=== PATIENT | female | born 1945 | race Hispanic/Latino ===

== ENCOUNTER 2021-06-16 08:00 | Observation (INO) | payer MEDICARE ==
[~2021-06-16] VITALS: Ht 160 cm; Wt 76.3 kg
[2021-06-16 07:23] VITALS: BP 154/70
[2021-06-16 11:50] LABS: BASOPHILS % (AUTO) 0.6 % (0.0-5.0); EOSINOPHILS % (AUTO) 2.7 % (0.0-8.0); HEMATOCRIT 46.2 % (36-48); LYMPHOCYTES % (AUTO) 22.1 % (21.0-51.0); MEAN CORPUSCULAR HEMOGLOBIN 31.9 pg (27.0-33.0); MEAN CORPUSCULAR HGB CONC 32.9 g/dL (32.0-36.0); MEAN CORPUSCULAR VOLUME 97.1 fL (79-99); MONOCYTES % (AUTO) 8.4 % (3.0-13.0); NEUTROPHILS % (AUTO) 65.8 % (40.0-77.0); PLATELET COUNT (AUTO) 260 K/uL (130-400); RED BLOOD CELL COUNT(AUTO) 4.76 MIL/uL (4.00-5.50); RED CELL DISTRIBUTION WIDTH 13.7 % (11.0-15.5); WHITE BLOOD COUNT (AUTO) 8.9 K/uL (4.8-10.8)
[2021-06-16 11:59] LABS: CREATININE 1.1 mg/dL (0.5-1.5); POTASSIUM 4.4 mmol/L (3.5-5.1)
[2021-06-18] MEDS ORDERED: DICL35CA3 PO (10:06)
[2021-06-18] MEDS ORDERED: METOPROLOL SUCC PO (10:06)
[2021-06-18] MEDS ORDERED: ATOR10 PO (10:06)
[2021-06-18] MEDS ORDERED: DULOXETINE HCL PO (10:06)
[2021-06-19] MEDS ORDERED: CEFAZOLIN SODIUM 1 GM VIAL IVP SCH (06:00)
[2021-06-20] VITALS (25 sets, daily range): BP systolic 109–161; BP diastolic 46–87
[2021-06-20] MEDS ORDERED: LACTATED RINGERS 1000ML 1,000 ML IV ONE (06:10)
[2021-06-20] MEDS ORDERED: CEFAZOLIN SODIUM 1 GM VIAL ONE ×3 (06:10→12:19)
[2021-06-20] MEDS ORDERED: METO-408 PO (07:32)
[2021-06-20] MEDS ORDERED: DULO30CA52 PO (07:32)
[2021-06-20] MEDS ORDERED: LIDOCAINE PF 100MG/5ML (2%) SYRINGE 5ML ONE (07:32)
[2021-06-20] MEDS ORDERED: MIDAZOLAM HCL 1 MG/ML 2ML VIAL ONE (07:33)
[2021-06-20] MEDS ORDERED: FENTANYL CITRATE PF 50 MCG/1 ML 2ML VIAL ONE ×2 (07:34→13:10)
[2021-06-20] MEDS ORDERED: ROCURONIUM 10MG/1ML SYR 10 MG/ML ML ONE (07:34)
[2021-06-20] MEDS ORDERED: PROPOFOL 10 MG/ML 20ML VIAL IV ONE (07:34)
[2021-06-20] MEDS ORDERED: ONDANSETRON 4MG INJ ONE (07:34)
[2021-06-20] MEDS ORDERED: PROPOFOL 1000 MG/100 ML 100 ML IV ONE (07:37)
[2021-06-20] MEDS ORDERED: KETAMINE 50MG/ML SYRINGE 50 MG/ML DISP.SYRIN IV ONE (07:37)
[2021-06-20] MEDS ORDERED: THROMBIN-JMI 5000 UNIT/VIAL TP ONE (09:21)
[2021-06-20] MEDS ORDERED: BUPIVACAINE/EPI/PF 0.25% 30ML VIAL IJ ONE (09:21)
[2021-06-20] MEDS ORDERED: MORPHINE PF 100MG/10ML AMP IV ONE (09:21)
[2021-06-20] MEDS ORDERED: FENTANYL CITRATE PF 50 MCG/1 ML 5ML AMP IV ONE (09:44)
[2021-06-20] MEDS ORDERED: DEXAMETHASONE SOD PHOSPHATE 10MG/ML 1ML VIAL ONE (10:17)
[2021-06-20] MEDS ORDERED: ESMOLOL HCL 10 MG/ML 10 ML VIAL ONE (10:18)
[2021-06-20] MEDS ORDERED: MAGNESIUM SULFATE 1 GM/2 ML VIAL ONE (10:18)
[2021-06-20] MEDS ORDERED: EPINEPHRINE PF 1MG AMP ONE (10:35)
[2021-06-20] MEDS ORDERED: GLYCOPYRROLATE 1 MG/5 ML SYRINGE ONE (10:36)
[2021-06-20] MEDS ORDERED: PHENYLEPHRINE HCL 10 MG/ML 1ML VIAL IV ONE (10:37)
[2021-06-20] MEDS ORDERED: KETOROLAC 30MG VIAL (30MG/ML) ONE (12:24)
[2021-06-20] MEDS ORDERED: NEOSTIGMINE 5MG/5ML SYR IV ONE (12:49)
[2021-06-20] MEDS ORDERED: DEXAMETHASONE SOD PHOSPHATE 4 MG/ML 1ML VIAL IVP SCH (13:30)
[2021-06-20] MEDS ORDERED: 0.9%NACL 10ML VIAL IVP PRN (13:30)
[2021-06-20] MEDS ORDERED: LACTATED RINGERS 1000ML 1,000 ML IV SCH (13:30)
[2021-06-20] MEDS ORDERED: DULOXETINE HCL 30 MG CAP PO PRN (13:30)
[2021-06-20] MEDS ORDERED: MORPHINE 2 MG SYG IVP PRN (13:30)
[2021-06-20] MEDS ORDERED: PROMETHAZINE HCL 25 MG/ML 1ML AMPULE IM PRN (13:30)
[2021-06-20] MEDS ORDERED: HYDROCODONE/ACETAMINOPHEN 5/325 MG TAB PO PRN (13:30)
[2021-06-20] MEDS ORDERED: CEFAZOLIN SODIUM 1 GM VIAL IVP SCH (18:00)
[2021-06-20] MEDS: DEXAMETHASONE SOD PHOSPHATE 4 MG/ML 1ML VIAL IVP SCH (18:38)
[2021-06-20] MEDS ORDERED: ATORVASTATIN 10 MG TABLET PO SCH (21:00)
[2021-06-21] VITALS: BP 118/56
[2021-06-21] MEDS: DEXAMETHASONE SOD PHOSPHATE 4 MG/ML 1ML VIAL IVP SCH ×3 (00:52→12:00)
[2021-06-21 08:00] VITALS: BP 121/80
[2021-06-21] MEDS ORDERED: METOPROLOL SUCCINATE 50 MG TAB.SR.24H PO SCH (09:00)
[2021-06-21 12:00] VITALS: BP 126/66
== END 2021-06-21 13:30 | disposition home or self-care (01) ==
LOC: DAHIP 06-19 05:51 → UNDOADMOB 06-19 05:51 → DAHIP 06-20 06:57 → 4AH 06-20 14:45
PROVIDERS: ADMIT Neurological Surgery; ATTEND Neurological Surgery
DX: M48.062 Spinal stenosis, lumbar region with neurogenic claudication (principal); Z20.822 Contact with and (suspected) exposure to COVID-19; M43.10 Spondylolisthesis, site unspecified; Z90.710 Acquired absence of both cervix and uterus
CPT/HCPCS: 36415; 63047; 63048 ×2; 72100; 80048; 85025; 87635; 96374; 96375; 96376; A4215; A4221; A4222; A4223; A4344; A4510; A4600; A4649 ×3; A4663; G0378 ×23; J0171; J0690 ×4; J1100 ×5; J1885; J2001; J2250; J2274; J2370; J2405; J2704 ×2; J2710; J3010 ×3; J3475; J3490 ×5; J7120 ×3

== ENCOUNTER → 2022-03-26 | Outpatient (CLI) | payer MEDICARE ==
[~2022-03-26] MED LIST: ATOR10 PO; DICL35CA3 PO; DULO30CA52 PO; GADOTERATE MEGLUMINE 5 MMOL/10 ML VIAL IV ONE; METO-408 PO
== END | disposition home or self-care (01) ==
LOC: RAH 08:40
PROVIDERS: ATTEND Neurological Surgery
DX: M43.16 Spondylolisthesis, lumbar region (principal); M47.26 Other spondylosis with radiculopathy, lumbar region; M48.061 Spinal stenosis, lumbar region without neurogenic claudication
CPT/HCPCS: 72158; A9575

== ENCOUNTER → 2022-04-03 | Outpatient (CLI) | payer MEDICARE ==
[~2022-04-03] MED LIST changes: -GADOTERATE MEGLUMINE 5 MMOL/10 ML VIAL IV ONE
== END | disposition home or self-care (01) ==
LOC: RAH 08:07
PROVIDERS: ATTEND Neurological Surgery
DX: S33.140A Subluxation of L4/L5 lumbar vertebra, initial encounter (principal); M54.50 Low back pain, unspecified; X58.XXXA Exposure to other specified factors, initial encounter; Y93.89 Activity, other specified; Y92.89 Other specified places as the place of occurrence of the external cause; Y99.8 Other external cause status
CPT/HCPCS: 72114

== ENCOUNTER 2022-06-01 09:30 | Observation (INO) | payer MEDICARE ==
[~2022-06-01] VITALS: Ht 162.6 cm; Wt 79.6 kg
[~2022-06-01 09:30] MED LIST changes: -DICL35CA3 PO
[2022-06-01 09:49] LABS: BASOPHILS % (AUTO) 0.5 % (0.0-5.0); EOSINOPHILS % (AUTO) 2.2 % (0.0-8.0); HEMATOCRIT 40.7 % (36-48); LYMPHOCYTES % (AUTO) 22.9 % (21.0-51.0); MEAN CORPUSCULAR HEMOGLOBIN 31.4 pg (27.0-33.0); MEAN CORPUSCULAR HGB CONC 32.4 g/dL (32.0-36.0); MEAN CORPUSCULAR VOLUME 96.7 fL (79-99); MONOCYTES % (AUTO) 10.3 % (3.0-13.0); NEUTROPHILS % (AUTO) 63.7 % (40.0-77.0); PLATELET COUNT (AUTO) 276 K/uL (130-400); RED BLOOD CELL COUNT(AUTO) 4.21 MIL/uL (4.00-5.50); RED CELL DISTRIBUTION WIDTH 12.7 % (11.0-15.5); WHITE BLOOD COUNT (AUTO) 7.3 K/uL (4.8-10.8)
[2022-06-01 10:01] LABS: POTASSIUM 4.6 mmol/L (3.5-5.1)
[2022-06-01 10:21] VITALS: BP 138/70
[2022-06-03] VITALS (26 sets, daily range): BP systolic 107–154; BP diastolic 42–91
[2022-06-03] MEDS: CEFAZOLIN SODIUM 2 GM VIAL IVPB SCH ×2 (05:00→08:00)
[2022-06-03] MEDS ORDERED: LACTATED RINGERS 1000ML 1,000 ML IV ONE (06:09)
[2022-06-03] MEDS ORDERED: PROPOFOL 1000 MG/100 ML 200 ML IV ONE (06:39)
[2022-06-03] MEDS ORDERED: DEXAMETHASONE SOD PHOSPHATE 4 MG/ML 1ML VIAL ONE (06:39)
[2022-06-03] MEDS ORDERED: LIDOCAINE PF 100MG/5ML (2%) SYRINGE 5ML ONE (06:52)
[2022-06-03] MEDS ORDERED: FENTANYL CITRATE PF 50 MCG/1 ML 2ML VIAL ONE (06:52)
[2022-06-03] MEDS ORDERED: ROCURONIUM 10MG/1ML SYR 10 MG/ML ML ONE (06:52)
[2022-06-03] MEDS ORDERED: PROPOFOL 10 MG/ML 20ML VIAL IV ONE (06:52)
[2022-06-03] MEDS ORDERED: GLYCOPYRROLATE 1 MG/5 ML SYRINGE ONE (06:52)
[2022-06-03] MEDS ORDERED: NOREPINEPHRINE BITARTRATE 1 MG/1 ML ML IV ONE (06:55)
[2022-06-03] MEDS ORDERED: MORPHINE PF 100MG/10ML AMP IV ONE (07:12)
[2022-06-03] MEDS ORDERED: CEFAZOLIN SODIUM 1 GM VIAL ONE ×3 (07:12→12:07)
[2022-06-03] MEDS ORDERED: THROMBIN-JMI 20000 UNIT KIT TP ONE (07:13)
[2022-06-03] MEDS ORDERED: FAMOTIDINE 20MG VIAL IV ONE (07:16)
[2022-06-03] MEDS ORDERED: MIDAZOLAM HCL 1 MG/ML 2ML VIAL ONE (07:18)
[2022-06-03] MEDS: BUPIVACAINE/EPI/PF 0.25% 30ML VIAL IJ SCH (07:30)
[2022-06-03] MEDS ORDERED: EPHEDRINE SULFATE 50 MG/ML AMPULE ONE (08:28)
[2022-06-03] MEDS ORDERED: ONDANSETRON 4MG INJ ONE (09:28)
[2022-06-03] MEDS: CEFAZOLIN SODIUM 1 GM VIAL IVP SCH ×3 (12:00→19:58)
[2022-06-03] MEDS ORDERED: HYDROCODONE/ACETAMINOPHEN 5/325 MG TAB PO PRN (13:30)
[2022-06-03] MEDS ORDERED: PROMETHAZINE HCL 25 MG/ML 1ML AMPULE IM PRN (13:30)
[2022-06-03] MEDS ORDERED: 0.9%NACL 10ML VIAL IVP PRN (13:30)
[2022-06-03] MEDS ORDERED: MORPHINE 2 MG SYG IVP PRN (13:30)
[2022-06-03] MEDS ORDERED: DULOXETINE HCL 30 MG CAP PO PRN (13:30)
[2022-06-03] MEDS: DEXAMETHASONE SOD PHOSPHATE 4 MG/ML 1ML VIAL IVP SCH ×2 (15:10→19:43)
[2022-06-03] MEDS: LACTATED RINGERS 1000ML 1,000 ML IV SCH (16:31)
[2022-06-03] MEDS ORDERED: ATORVASTATIN 10 MG TABLET PO SCH (21:00)
[2022-06-04] MEDS: DEXAMETHASONE SOD PHOSPHATE 4 MG/ML 1ML VIAL IVP SCH ×2 (01:33→08:01)
[2022-06-04] MEDS: LACTATED RINGERS 1000ML 1,000 ML IV SCH (02:50)
[2022-06-04 04:38] VITALS: BP 117/61
[2022-06-04] MEDS: CEFAZOLIN SODIUM 2 GM VIAL IVPB SCH (05:00)
[2022-06-04] MEDS: CEFAZOLIN SODIUM 1 GM VIAL IVP SCH ×2 (05:16→07:39)
[2022-06-04 07:59] VITALS: BP 117/68
[2022-06-04] MEDS ORDERED: METOPROLOL SUCCINATE 25 MG TAB.SR.24H PO SCH (09:00)
[2022-06-04 12:00] VITALS: BP 140/75
== END 2022-06-04 13:29 | disposition home or self-care (01) ==
LOC: EDSTATUS 09:30 → DAHIP 06-03 05:58 → 4DH 06-03 15:15
PROVIDERS: ADMIT Neurological Surgery; ATTEND Neurological Surgery
DX: M43.16 Spondylolisthesis, lumbar region (principal); Z20.822 Contact with and (suspected) exposure to COVID-19; M48.062 Spinal stenosis, lumbar region with neurogenic claudication; I10 Essential (primary) hypertension; I25.10 Atherosclerotic heart disease of native coronary artery without angina pectoris; Z79.899 Other long term (current) drug therapy; Z98.890 Other specified postprocedural states
CPT/HCPCS: 80048; 85025; 87426; 36415; 71045; 63047; 63048; 96374; 96376 ×2; 96375; 72110; 97161; 97039; 97116; J1100 ×2; G0378 ×22; G0379; A4663; J7120 ×2; A4344; A4649 ×5; J3490 ×5; J3010; J0690 ×5; J2001; J2250; J2704 ×2; J2274; J2405; A5113; C1776; A4215; A4223; A4222; A4221; A4600; A4510

== ENCOUNTER → 2022-06-26 | Outpatient (CLI) | payer MEDICARE | END | disposition home or self-care (01) | LOC: RAH 09:49 | PROVIDERS: ATTEND Neurological Surgery | DX: M47.816 Spondylosis without myelopathy or radiculopathy, lumbar region (principal); M43.26 Fusion of spine, lumbar region | CPT/HCPCS: 72100 ==